=== PATIENT | female | born 1995 | race Caucasian/White ===

== ENCOUNTER 2020-08-02 07:59 | Inpatient (IN) | payer OTHER ==
[2020-08-02] MEDS ORDERED: fentaNYL 100 MCG/2 ML SDV IVPUSH PRN (08:00)
[2020-08-02] MEDS ORDERED: Penicillin G Potassium 5 MILLUNITS in Sodium Chloride 0.9% 100 ML IV ONE (08:00)
[2020-08-02] MEDS ORDERED: Lactated Ringers 1,000 ML IV SCH (08:00)
[2020-08-02] MEDS ORDERED: Ondansetron 4 MG/2 ML SDV IVPUSH PRN (08:00)
[2020-08-02] MEDS ORDERED: Misoprostol 400 MCG (4 X 100 MCG TAB) RECTAL PRN (08:00)
[2020-08-02] MEDS ORDERED: Sodium Chloride 0.9% 10 ML Syringe FLUSH PRN (08:00)
[2020-08-02] MEDS ORDERED: Acetaminophen 325 MG Tab PO PRN (08:00)
[2020-08-02] MEDS ORDERED: Misoprostol 50 MCG (1/2 of 100 MCG) Tab VAG ONE (08:00)
[2020-08-02] MEDS ORDERED: Carboprost Tromethamine 250 MCG/1 ML Amp IM PRN (08:00)
[2020-08-02] MEDS ORDERED: Lidocaine 1% 30 ML SDV INJECT PRN (08:00)
[2020-08-02] MEDS ORDERED: Methylergonovine 0.2 MG/1 ML Amp IM PRN (08:00)
[2020-08-02] MEDS ORDERED: Tranexamic Acid 1,000 MG in Sodium Chloride 0.9% 100 ML IV PRN (08:00)
[2020-08-02] MEDS ORDERED: Oxytocin/Normal Saline 30 UNIT/500 ML BAG IV SCH ×2 (08:00)
[2020-08-02] MEDS ORDERED: Penicillin G Potassium 3 MILLUNITS in Sodium Chloride 0.9% 100 ML IV SCH (12:00)
[2020-08-02] MEDS: Misoprostol 25 MCG (1/4 of 100 MCG) Tab VAG PRN ×3 (13:01→21:38)
[2020-08-02] MEDS ORDERED: hydrOXYzine HCl 25 MG Tab PO ONE (21:31)
[2020-08-03] MEDS: Lactated Ringers 1,000 ML IV SCH ×2 (01:46→07:25)
[2020-08-03] MEDS ORDERED: Nalbuphine 10 MG/1 ML Vial IM ONE (02:30)
[2020-08-03] MEDS ORDERED: Penicillin G Potassium 5 MILLUNITS in Sodium Chloride 0.9% 100 ML IV ONE (03:00)
[2020-08-03] MEDS: Penicillin G Potassium 3 MILLUNITS in Sodium Chloride 0.9% 100 ML IV SCH (07:07)
--- NOTE | 2020-08-03 08:15 | PN ---
DATE: 08/03/2020 SUBJECTIVE: A 25-year-old 1, para 0, currently at 39 and 2/7 weeks gestation, admitted for induction of labor due to gestational hypertension and initiated with 50 mcg of Pitocin followed by several doses of 25 mcg of Cytotec and then switched over to Pitocin. Contractions feel like strong cramps since she is more uncomfortable, but certainly are well tolerated. Most recently, nurses tried placing her up to 6 on the Pitocin, but it was causing some hyperstimulation of the uterus that was causing her to contract every minute, but baby was tolerating well. It has since been decreased to 4. Discussed with the patient option of going home and coming back to try induction at another time or proceeding with artificial rupture of membranes, as well as its associated risk including potential for prolapsed cord, lacerations of the baby's scalp or cervix, but that it should help with progression of labor by removing that fluid cushion and allowing the cervix to dilate further because the head is able to press against it harder. OBJECTIVE: Vital Signs currently, blood pressure 129/75, pulse of 69, she is afebrile. Baseline heart rate 148 beats per minute. Moderate beat-to- beat variability. Current strip was nonreactive, but now that she has been ruptured, strip is reactive. Excellent variability continues. Contractions are about every minute and a half. Cervix is 3+ cm dilated, 85% effaced, -2 station. Amnio hook was used to open the amniotic fluid sac and clear fluid returned in large amounts and the patient tolerated well. ASSESSMENT/PLAN: 1. 39 and 2/7 weeks gestation. 2. Gestational hypertension. 3. Status post artificial rupture of membranes just before 7:30 a.m. Anticipate that she will be progressing further in labor at this point, and I do note on the strip, the nurse has now started the patient on Nitrox, I assume she is much more uncomfortable. 4. Continue active labor management. [facility] /[id number] MTDD
[2020-08-03] MEDS: Acetaminophen 325 MG Tab PO PRN ×2 (12:16→20:21)
[2020-08-03] MEDS ORDERED: Acetaminophen 325 MG Tab PO PRN (12:51)
[2020-08-03] MEDS ORDERED: Benzocaine/Menthol 20%-0.5% Spray 56 GM Canister TOP PRN (12:51)
[2020-08-03] MEDS ORDERED: Sodium Chloride 0.9% 10 ML Syringe FLUSH PRN (12:51)
[2020-08-03] MEDS ORDERED: Oxytocin 10 Units/1 ML SDV IM PRN (12:51)
[2020-08-03] MEDS ORDERED: Misoprostol 400 MCG (4 X 100 MCG TAB) RECTAL PRN (12:51)
[2020-08-03] MEDS ORDERED: Carboprost Tromethamine 250 MCG/1 ML Amp IM PRN (12:51)
[2020-08-03] MEDS ORDERED: Tranexamic Acid 1,000 MG in Sodium Chloride 0.9% 100 ML IV PRN (12:51)
[2020-08-03] MEDS ORDERED: Ibuprofen 800 MG Tab PO PRN (12:51)
[2020-08-03] MEDS ORDERED: Simethicone 80 MG Tab.Chew PO PRN (12:51)
[2020-08-03] MEDS ORDERED: Witch Hazel Medicated Pads 100/Jar TOP PRN (14:14)
[2020-08-03] MEDS: Ibuprofen 800 MG Tab PO PRN ×2 (14:53→22:47)
[2020-08-03] MEDS: Docusate Sodium 100 MG Cap PO PRN ×2 (14:54→22:47)
[2020-08-03] MEDS ORDERED: Zolpidem 5 MG Tab PO PRN (21:00)
[2020-08-04] MEDS: Penicillin G Potassium 3 MILLUNITS in Sodium Chloride 0.9% 100 ML IV SCH (01:39)
[2020-08-04] MEDS: Acetaminophen 325 MG Tab PO PRN (03:17)
--- NOTE | 2020-08-04 07:17 | DEL ---
DATE: 08/03/2020 PREPROCEDURE DIAGNOSES: 1. A 39-2/7 weeks' intrauterine gestation based on last menstrual period and confirmed with 6-week ultrasound. 2. Gestational hypertension. 3. Anxiety. 4. Blood type A negative, rubella nonimmune, group B streptococcus positive. 5. History of coronavirus disease in the 2nd trimester. 6. Chronic bladder pain. 7. POSTPROCEDURE DIAGNOSES: 1. A 39-2/7 weeks' intrauterine gestation based on last menstrual period and confirmed with 6-week ultrasound. 2. Gestational hypertension. 3. Anxiety. 4. Blood type A negative, rubella nonimmune, group B streptococcus positive. 5. History of coronavirus disease in the 2nd trimester. 6. Chronic bladder pain. 7. 1, now para 1-0-0-1. 8. Status post vacuum-assisted vaginal delivery. 9. bradycardia. 10.Status post second-degree laceration repair. BRIEF HISTORY: The patient is a 25-year-old, who was admitted to the hospital yesterday for induction of labor due to gestational hypertension, which was carried out initially with Cytotec, followed by Pitocin, but that was causing some hyperstimulation, so the most we could get her to was 4. Artificial rupture of membranes was performed this morning with return of clear fluid, and the patient was at 3 cm. About an hour and a half later, she reached complete and did not have time to have an intrathecal placed and began pushing, and after 2 hours of active labor and 30 minutes of pushing, she delivered a viable male with details as listed below. DETAILS: With the patient in dorsal lithotomy position, she delivered a viable male infant in an OA position over an intact perineum. The patient was getting very good pushing efforts and had voided throughout her pushes, and bladder was known to be empty. She had been verbally consented for vacuum assistance due to bradycardia down into the 70s being auscultated and recovery was getting slower. It was felt that delivery assisted by vacuum was necessary for improvement in status and risk of immediate compromise. She was aware of the increased risk of vaginal trauma; trauma to the baby's head, including significant hematomas, bleeding, and other lacerations; and increased risk of shoulder dystocia and need to convert to an operative delivery. It was normal business hours, so all secondary and ancillary staff were readily available. The patient was at outlet position, and there was no time to change her level of anesthesia. This was performed with a low-profile rigid cup kept in the green zone for the 1 contraction that it was used to expedite delivery. After delivery of the head and shoulders, the remainder of the delivered readily thereafter. He was dried and stimulated, and the mouth and nose were bulb suctioned. Vacuum was removed when the baby was well-appearing and the baby then placed upon the mother's abdomen. After a delay, a 3-vessel umbilical cord was doubly clamped and then cut and a cord blood sample obtained. The placenta was then delivered by gentle cord traction and concomitant uterine massage, inspected, and intact. The patient's labia and vagina were inspected. There was a small anterior laceration that was hemostatic and did not need repair. Posteriorly, she had a second-degree laceration, and the sphincter muscle could be well seen but was not torn in and of itself. The tear extended up into the vagina approximately 3 cm up from the introitus. The secondary laceration was repaired with 3-0 Vicryl under 1% lidocaine anesthesia with good hemostasis and cosmetic repair. The patient tolerated the procedure quite well. COMPLICATIONS: None. FINDINGS: Normal maternal anatomy. A second-degree laceration was well repaired. The baby is a viable male infant, scores of 8 and 9, weight 3355 g or 7 pounds 6 ounces, length of 20 inches. ESTIMATED BLOOD LOSS: 400 mL. DISPOSITION: Mother and baby are to stay in the room at this time to initiate skin to skin and . [facility] /[id number] SULEMA
[2020-08-04] MEDS: Prenatal Multivitamin with Calcium/Folic Acid/Iron Tab PO SCH (08:29)
[2020-08-04] MEDS: Docusate Sodium 100 MG Cap PO PRN ×2 (08:30→22:05)
[2020-08-04] MEDS: Ibuprofen 800 MG Tab PO PRN ×2 (08:31→22:06)
[2020-08-04] MEDS ORDERED: Measles, Mumps & Rubella Vaccine 0.5 ML SDV SUBCUT ONE (09:00)
--- NOTE | 2020-08-04 10:05 | PN ---
DATE: 08/04/2020 SUBJECTIVE: 25-year-old 1, now para 1-0-0-1, status post vacuum- assisted vaginal delivery almost 24 hours ago. The patient is doing well, voiding and stooling with some expected pain, but nothing out of the ordinary. Blood flow has continued to be a little heavier than a period, passage of no large clots. No chest pain or shortness of breath. seems to be going well. She is ambulating and tolerating a regular diet. No symptoms of preeclampsia and blood pressures have been good. She is denying any new concerns today. She feels like the ibuprofen and Tylenol in general are sufficient for the pain, although she would just like them to last longer. OBJECTIVE: Vital Signs: Temperature is 99.1; pulse 86; blood pressure 105/64, highest blood pressure overnight was 148/85; respiratory rate of 18; and O2 saturations 100% on room air. Heart: Regular without murmur. Lungs: Clear to auscultation bilaterally. Abdomen: Soft, nontender. Fundus is firm and below the umbilicus. Extremities: 1+ edema bilaterally. ASSESSMENT: 1. Post delivery day #1, status post vacuum-assisted vaginal delivery. 2. Gestational hypertension. 3. Anxiety. 4. Blood type A negative. She has received her RhoGAM, rubella nonimmune. She has received her MMR vaccine. 5. Anemia of acute blood loss. 6. Thrombocytopenia. PLAN: Continue normal post-delivery cares and be anticipating discharge home tomorrow. She will continue to get additional assistance from the nurses as needed, and all of her questions have been answered at this time. Of note, the patient's platelets have come down to 142 from a previous 171 and hemoglobin is down to 9.7 from 12.1. [facility] /[id number]
[2020-08-05] MEDS: Docusate Sodium 100 MG Cap PO PRN (09:09)
[2020-08-05] MEDS: Prenatal Multivitamin with Calcium/Folic Acid/Iron Tab PO SCH (09:10)
[2020-08-05] MEDS: Ibuprofen 800 MG Tab PO PRN (09:10)
[2020-08-05 09:24] VITALS: BP 126/86; PULSE 88
--- NOTE | 2020-08-05 10:42 | DISCH ---
ADMISSION DIAGNOSES: 1. 1, para 0. 2. Gestational hypertension. 3. Anxiety. 4. Blood type A negative, rubella nonimmune, group B strep positive. 5. History of coronavirus disease infection in the 2nd trimester. 6. Chronic bladder pain. 7. 39-1/7 weeks' intrauterine based on last menstrual period. DISCHARGE DIAGNOSES: 1. 1, para 1. 2. Gestational hypertension. 3. Anxiety. 4. Blood type A negative, rubella nonimmune, group B strep positive. 5. History of coronavirus disease infection in the 2nd trimester. 6. Chronic bladder pain. 7. 39-1/7 weeks' intrauterine based on last menstrual period. 8. Anemia of acute blood loss. 9. Thrombocytopenia. 10.Status post vacuum-assisted vaginal delivery with second-degree laceration repair. BRIEF HISTORY: A 25-year-old female with above-listed diagnoses, admitted to the hospital on 08/02/2020 for induction of labor with Cytotec due to gestational hypertension. After several doses, the patient had an improved Villar score, and Pitocin was initiated. The most we could run was typically 4 units of Pitocin. Otherwise, she would have hyperstimulation. Therefore, artificial rupture of membranes was performed when she was 3 cm, and within 2 hours, she was complete and ready to push. She did not receive an intrathecal due to the rapid transition. She pushed for about half an hour, and baby developed decreased heart tones down into the 70s and was slower to recover. Outlet vacuum was used for 1 contraction and resulted in vaginal delivery. Baby's scores are 8 and 9. His weight 3355 g, 7 pounds 6 ounces, and he is 20 inches long. Mother sustained a second-degree laceration that extended up into the vagina, which was closed in usual fashion with good hemostasis and skin reapproximation, and she tolerated the procedure overall quite well. See delivery notes and H and P for full details. HOSPITAL COURSE: Has been good. Since delivery, the patient has been ambulating, tolerating regular diet. No chest pain or shortness of breath. Voiding without complications. Passing flatus. Has not yet had a bowel movement. seems to be going well and she complained of some lower extremity edema and generalized discomfort from the perineal laceration as well as the uterine cramping, but overall controlled with ibuprofen and Tylenol. DISCHARGE CONDITION: Good. PHYSICAL EXAMINATION: Vital Signs: Temperature is 98.9, pulse 88, respiratory rate of 16, O2 saturations 100% on room air, blood pressure 126/86. Maximum blood pressure on the 18th was 148/85. Heart: Regular without obvious murmur. Lungs: Clear to auscultation bilaterally. Abdomen: Soft and nontender. Positive bowel sounds. Fundus is firm at the umbilicus. Extremities: 1+ edema bilaterally. No erythema or tenderness. LABORATORY DATA: Admission hemoglobin 12.1 and platelets of 171. Discharge hemoglobin 9.7 and platelets 142. Baby's blood type was A positive, so she did receive a RhoGAM injection. Due to her rubella nonimmune, she did also receive an MMR vaccine. DISPOSITION: Home with family. DISCHARGE MEDICATIONS: 1. vitamin 1 daily to be continued while . 2. Ibuprofen 800 mg every 8 hours as needed for pain. 3. Tylenol 650 mg every 8 hours as needed for pain. 4. Colace 100 mg twice daily as needed for constipation. 5. Iron 325 mg twice daily for anemia. INSTRUCTIONS: Routine post vaginal delivery instructions for mother were provided and all of her questions were answered. FOLLOWUP: She will need to make a 6-week exam appointment when she brings her in for first check early next week. [facility] /[id number] MTDD
== END 2020-08-05 10:54 | disposition home or self-care (01) | DRG 806 ==
LOC: DL.OBCHECK 07:59 → DL.OB 08:24 → OBSVTOIN 08-03 09:23
PROVIDERS: ADMIT Family Medicine; ATTEND Family Medicine
PROC: 10D07Z6 Extraction of Products of Conception, Vacuum, Via Natural or Artificial Opening (ICD-10-PCS; principal; 2020-08-03)
PROC: 0KQM0ZZ Repair Perineum Muscle, Open Approach (ICD-10-PCS; 2020-08-03)
PROC: 10907ZC Drainage of Amniotic Fluid, Therapeutic from Products of Conception, Via Natural or Artificial Opening (ICD-10-PCS; 2020-08-03)
DX: O13.4 Gestational [pregnancy-induced] hypertension without significant proteinuria, complicating childbirth (principal); D62 Acute posthemorrhagic anemia; Z37.0 Single live birth; O99.12 Other diseases of the blood and blood-forming organs and certain disorders involving the immune mechanism complicating childbirth; Z3A.39 39 weeks gestation of pregnancy; O99.824 Streptococcus B carrier state complicating childbirth; O76 Abnormality in fetal heart rate and rhythm complicating labor and delivery; O99.344 Other mental disorders complicating childbirth; F41.9 Anxiety disorder, unspecified; Z86.16 Personal history of COVID-19; Z20.822 Contact with and (suspected) exposure to COVID-19; O99.02 Anemia complicating childbirth; D69.6 Thrombocytopenia, unspecified
CPT/HCPCS: 36415; 36430; 59409; 85027; 86850; 86870; 86900; 86901; 90471; 90707; A9270-GY; J2300; J2405; J2540; J2590; J2790; J3010; J7120; U0002

== ENCOUNTER 2022-03-06 00:04 | Inpatient (IN) | payer OTHER ==
[~2022-03-06 00:04] MED LIST: Acetaminophen 325 MG Tab PO PRN; Carboprost Tromethamine 250 MCG/1 ML Amp IM PRN; Lactated Ringers 1,000 ML IV ONE; Lidocaine 1% 30 ML SDV INJECT PRN; Methylergonovine 0.2 MG/1 ML Amp IM PRN; Misoprostol 400 MCG (4 X 100 MCG TAB) RECTAL PRN; Nalbuphine 20 MG/1 ML Amp IM PRN; Ondansetron 4 MG/2 ML SDV IVPUSH PRN; Sodium Chloride 0.9% 10 ML Syringe FLUSH PRN; Tranexamic Acid 1,000 MG in Sodium Chloride 0.9% 100 ML IV PRN; fentaNYL 100 MCG/2 ML SDV IVPUSH PRN
[2022-03-06] MEDS ORDERED: Penicillin G Potassium 5 MILLUNITS in Sodium Chloride 0.9% 100 ML IV ONE (00:08)
[2022-03-06] MEDS ORDERED: Oxytocin/Normal Saline 30 UNIT/500 ML BAG IV SCH (00:15)
[2022-03-06] MEDS: Misoprostol 25 MCG (1/4 of 100 MCG) Tab VAG PRN ×2 (00:40→04:50)
[2022-03-06] MEDS: Lactated Ringers 1,000 ML IV SCH ×3 (01:27→08:43)
[2022-03-06] MEDS: Penicillin G Potassium 2.5 MILLUNITS in Sodium Chloride 0.9% 100 ML IV SCH ×3 (05:38→21:28)
[2022-03-06] MEDS ORDERED: Dexmedetomidine 200 MCG/2 ML SDV ONE (08:04)
[2022-03-06] MEDS ORDERED: EPINEPHrine 1 MG/ML SDV ONE (08:08)
[2022-03-06] MEDS ORDERED: Morphine PF 1 MG/ML Amp ONE (08:21)
[2022-03-06] MEDS ORDERED: Benzocaine/Menthol 20%-0.5% Spray 78 GM Cannister TOP PRN (12:04)
[2022-03-06] MEDS ORDERED: Zolpidem 5 MG Tab PO PRN (12:04)
[2022-03-06] MEDS ORDERED: Sodium Chloride 0.9% 10 ML Syringe FLUSH PRN (12:04)
[2022-03-06] MEDS ORDERED: Simethicone 80 MG Tab.Chew PO PRN (12:04)
[2022-03-06] MEDS ORDERED: Oxytocin 10 Units/1 ML SDV IM PRN (12:04)
[2022-03-06] MEDS ORDERED: diphenhydrAMINE 50 MG Cap PO PRN (17:23)
[2022-03-06] MEDS ORDERED: Witch Hazel Medicated Pads 100/Jar TOP PRN (20:00)
[2022-03-06] MEDS: Docusate Sodium 100 MG Cap PO PRN (20:04)
[2022-03-06] MEDS: Ibuprofen 800 MG Tab PO PRN (20:04)
[2022-03-06] MEDS: Sodium Chloride 0.9% 10 ML Syringe FLUSH SCH (20:57)
[2022-03-07] MEDS: Ibuprofen 800 MG Tab PO PRN ×2 (04:11→17:27)
[2022-03-07] MEDS: Prenatal Multivitamin with Calcium/Folic Acid/Iron Tab PO SCH (08:49)
[2022-03-07] MEDS: Docusate Sodium 100 MG Cap PO PRN (08:49)
[2022-03-07] MEDS: Sodium Chloride 0.9% 10 ML Syringe FLUSH SCH (09:00)
[2022-03-08] MEDS: Ibuprofen 800 MG Tab PO PRN (03:13)
[2022-03-08] MEDS: Sodium Chloride 0.9% 10 ML Syringe FLUSH SCH ×3 (03:24→10:27)
[2022-03-08 09:37] VITALS: BP 140/81; PULSE 95
[2022-03-08] MEDS: Prenatal Multivitamin with Calcium/Folic Acid/Iron Tab PO SCH (11:05)
== END 2022-03-08 11:25 | disposition home or self-care (01) | DRG 807 ==
LOC: DL.OB 00:04 → OBSVTOIN 11:42
PROVIDERS: ADMIT Family Medicine; ATTEND Family Medicine
PROC: 10E0XZZ Delivery of Products of Conception, External Approach (ICD-10-PCS; principal; 2022-03-06)
PROC: 10907ZC Drainage of Amniotic Fluid, Therapeutic from Products of Conception, Via Natural or Artificial Opening (ICD-10-PCS; principal; 2022-03-06)
PROC: 0KQM0ZZ Repair Perineum Muscle, Open Approach (ICD-10-PCS; principal; 2022-03-06)
PROC: 3E0P7VZ Introduction of Hormone into Female Reproductive, Via Natural or Artificial Opening (ICD-10-PCS; principal; 2022-03-06)
PROC: 3E0R3BZ Introduction of Anesthetic Agent into Spinal Canal, Percutaneous Approach (ICD-10-PCS; principal; 2022-03-06)
DX: O13.4 Gestational [pregnancy-induced] hypertension without significant proteinuria, complicating childbirth (principal); Z37.0 Single live birth; Z3A.38 38 weeks gestation of pregnancy; O69.81X0 Labor and delivery complicated by cord around neck, without compression, not applicable or unspecified; O70.1 Second degree perineal laceration during delivery; O99.824 Streptococcus B carrier state complicating childbirth
CPT/HCPCS: 36415; 59409; 85027; A9270-GY; J2405; J2540; J2590; J7120; Q0163; U0002